=== PATIENT | female | born 2000 | race Caucasian/White ===

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

== ENCOUNTER 2019-04-03 21:37 | Emergency (ER) | payer OTHER ==
--- OUTSIDE RECORDS SUMMARY | 2019-04-03 21:43 | XMS REPORT | Continuity of Care Document ---
:2000 External Reference #:[id number] Author Name ArellanoAllyn carter Care Team Providers Name Role Phone Jesus Zhang M.D. Primary Care Physician Unavailable Payers Date Identification Numbers Payment Provider Subscriber Effective: Policy Number: [id number] [employer] Christian Byrd 2015 Medicaid PayID: [id number] [address] [address] [place] [address] Family History Date Family Member(s) Observation Comments General No Current Problems Father Psoriasis Father Psoriasis PGF - dec [place] Father Psoriasis paternal aunts and uncles-cardiac issues, specifics unknown Mother maternal aunt-breast cancer Mother maternal aunt-breast cancer maternal great grandmother-dec [place] Siblings 3 unaware of any cardiac issue Social History Type Date Description Comments Sex Unknown Marital Status Single Lives With Mother And Father Occupation Currently Working ETOH Use Denies alcohol use Tobacco Use Start: Unknown Patient has never smoked Recreational Drug Use Denies Drug Use Smoking Status Reviewed: 03/16/19 Patient has never smoked Exercise Type/Frequency Does not exercise Allergies, Adverse Reactions, Alerts Description No Known Drug Allergies Medications Active Medications SIG Qnty Indications Ordering Provider Date No Active Medications Unknown 10/09/2017 History Medications Fluticasone Propionate Unknown - 10/08/2017 Benzoyl Peroxide Unknown - 10/08/2017 Zyrtec Allergy 1 by mouth every day Unknown - 10/08/2017 Multi-Vit/Fluoride 1 milliliters daily Unknown - 10/08/2017 Vital Signs Date Vital Result Comment 03/16/2019 3:43pm Height 63.25 inches 5'3.25" Weight 122.38 lb with shoes Heart Rate 90 /min radial, regular BP Systolic Sitting 118 mmHg LA, reg cuff BP Diastolic Sitting 58 mmHg LA, reg cuff BP Systolic Standing 116 mmHg LA, reg cuff BP Diastolic Standing 60 mmHg LA, reg cuff BMI (Body Mass Index) 21.5 kg/m2 Ejection Fraction 55-60% Echocardiogram 11/10/2017 11/26/2018 1:21pm Height 63.25 inches 5'3.25" Weight 117.00 lb w/shoes Heart Rate 72 /min reg BP Systolic Sitting 115 mmHg Lue reg cuff BP Diastolic Sitting 80 mmHg Lue reg cuff Respiratory Rate 15 /min BMI (Body Mass Index) 20.6 kg/m2 Height Percentile 34 % Weight Percentile 28th Ejection Fraction 55-60% 11/10/17 echo 09/23/2018 2:46pm Height 63.25 inches 5'3.25" Weight 123.00 lb with boots Heart Rate 100 /min BP Systolic 110 mmHg left arm BP Diastolic 60 mmHg left arm BMI (Body Mass Index) 21.6 kg/m2 Height Percentile 34 % Weight Percentile 41st Ejection Fraction 55-60 11/10/17 Echocardiogram 11/18/2017 4:30pm Height 63.25 inches 5'3.25" Weight 115.25 lb with shoes Heart Rate 72 /min BP Systolic Sitting 118 mmHg Ra, reg cuff BP Diastolic Sitting 62 mmHg Ra, reg cuff BMI (Body Mass Index) 20.3 kg/m2 Blood Pressure Percentile 0 % Height Percentile 35 % Weight Percentile 29th Ejection Fraction 55%-60% echo 11/10/17 10/09/2017 2:19pm Height 63.25 inches 5'3.25" Weight 116.00 lb w/shoes Heart Rate 68 /min BP Systolic Sitting 122 mmHg LA reg cuff BP Diastolic Sitting 62 mmHg LA reg cuff BP Systolic Standing 108 mmHg LA reg cuff BP Diastolic Standing 76 mmHg LA reg cuff BMI (Body Mass Index) 20.4 kg/m2 Blood Pressure Percentile 0 % Height Percentile 35 % Weight Percentile 31st 07/05/2015 11:43am Height 63.25 inches 5'3.25" Weight 116.00 lb Heart Rate 82 /min BP Systolic Sitting 101 mmHg BP Diastolic Sitting 66 mmHg Respiratory Rate 16 /min Pain Level 0 BMI (Body Mass Index) 20.4 kg/m2 Blood Pressure Percentile 0 % Height Percentile 38 % Weight Percentile 42nd Results Test Date Facility Test Result H/L Range Note Thyroid Panel 09/24/2018 [facility] Free T4 (Free 0.77 ng/dL N 0.61-1.[address] Thyroxine) [place] [address] [phone] Thyroxine 6.62 ?g/dL N 6.09-12.23 2 TSH (Thyroid Stim Horm) 0.99 mcIU/mL N 0.34-5.60 3 Laboratory test 10/15/2017 [facility] Vitamin D, 1,25 48 pg/mL 18-78 [address] [place] [address] [phone] 1 Copy Result to: JESUS ZHANG ([id number]) 2 Copy Result to: JESUS ZHANG ([id number]) 3 Copy Result to: JESUS ZHANG ([id number]) 4 ADDITIONAL INFORMATION This test was developed and its performance characteristics determined by [facility] in a manner consistent with CLIA requirements. This test has not been cleared or approved by the U.S. Food and Drug Administration. Test Performed by: [facility] [address] [place] [address] Procedures Date Code Description Status 03/16/2019 94852 EKG Tracing & Interpretation Completed 12/27/2018 26064 Event Monitor/Phys Review/Interp. Completed 11/23/2018 39581 Treadmill Interp/Report Only Completed 11/23/2018 71913 Stress Test Supervsn W/Out I/R Completed 09/23/2018 02266 EKG Tracing & Interpretation Completed 11/10/2017 92899 ECHO Transthoracic, Real-Time 2D With Doppler And Color Completed Flow 11/10/2017 72559 ECHO Transthoracic, Real-Time 2D With Doppler And Color Completed Flow 10/23/2017 84896 Holter Monitor Review (24 hr)dr review & interp only Completed 10/20/2017 25327 ECG Monitor/Recording W/Visual Superimposition Scanning Completed 10/09/2017 40657 EKG Tracing & Interpretation Completed Encounters Type Date Location Provider Dx Diagnosis Office Visit 11/26/2018 [facility] Bre Mitchell I47.1 Supraventricular 1:30p Of Mesh Cutter N.P. tachycardia R00.2 Palpitations R55 Syncope and collapse Office Visit 09/23/2018 [facility] Bre Villagran I47.1 Supraventricular 3:00p Cardiology Stephen, N.P. tachycardia R00.2 Palpitations R07.9 Chest pain, unspecified Office Visit 11/18/2017 4:20p [facility] Cedrick Villagran R55 Syncope and Bryant Mahmood collapse I47.1 Supraventricular tachycardia Office Visit 10/09/2017 [facility] Cedrick Villagran R55 Syncope and collapse 2:40p Cardiology Bryant Mahmood Office Visit 07/05/2015 [facility] [id number] Sprain of 10:30a [facility] interphalangeal C.M.A. joint of left middle finger, init Plan of Treatment 03/16/2019 - Cedrick Mahmood M.D.I47.1 Supraventricular tachycardiaFollow up:8 months ovR00.2 Palpitations
--- OUTSIDE RECORDS SUMMARY | 2019-04-03 21:43 | XMS REPORT | Continuity of Care Document ---
:1999 External Reference #:[id number] Author Name Gianluca LangP.N.PLee Ann Address [address] [facility] [address] [place] [address] Care Team Providers Name Role Phone Jesus Zhang M.D. Primary Care Physician Unavailable Payers Date Identification Numbers Payment Provider Subscriber Effective: 2015 Policy Number: [id number] Oscar (Managed MD) Ophelia Romanzquez PayID: [id number] [address] [address] [place] [address] Problems Description No Active Problems Family History Date Family Member(s) Observation Comments General Father with psoriasisMaternal aunt with breast cancer.Mother with pain in breast Social History Type Date Description Comments Sex Unknown Lives With Mother Lives With Older Brother Lives With Older Sister Lives With Younger Sister Lives With Cousin Work Status Currently Working Working at a [employer]. Tobacco Use Start: Unknown Patient has never smoked Smoking Status Reviewed: 01/04/19 Patient has never smoked Allergies, Adverse Reactions, Alerts Description No Known Drug Allergies Medications Active Medications SIG Qnty Indications Ordering Provider Date Azithromycin take two tablets 6tabs J01.90 Reina Jackson, 03/21/2019 250mg (500 mg), by C.P.N.P. Tablets mouth, day today, and then take 1 tablet (250 mg) days 2 through 5. Melatonin take 1 tablet by 30tabs G47.9 Jesus Zhang, 01/04/2019 3mg Tablets mouth at 8 at M.D. night every night History Medications Amoxicillin 2 tablet twice 40tabs J02.0 Diana Jaramilloppel, 01/11/2018 - 500mg daily for 10 days C.P.N.P. 01/21/2018 Tablets Nexplanon as directed Jesus 10/01/2017 - 68mg Leatha, 03/18/2019 Implant M.D. No Active Unknown 08/02/2015 - Medications 10/01/2017 Fluticasone use one spray 1units 995.3 Jesus 07/19/2014 - Propionate each nostril Leatha, 08/02/2015 50mcg/Act every day M.D. Suspension Benzoyl Peroxide apply over face 60gm 706.1 Jesus 07/19/2014 - 5% every at night Leatha, 08/02/2015 Gel M.D. Fluticasone 2 sprays in each 50units 995.3 Jesus 05/07/2012 - Propionate Nasal nostril once Leatha, 07/19/2014 daily M.D. 50mcg/Act Suspension Zyrtec Allergy 1 tab po qhs 30tabs 995.3 Jesus 11/26/2011 - 10mg Leatha, 08/02/2015 Tablets M.D. Nasonex 1 spray in each 1units 995.3 Jesus 11/19/2010 - 50mcg/Act nostril qday Leatha, 05/07/2012 Suspension M.D. Zyrtec 1/2 tab po qd 30tabs 995.3 Jesus 11/19/2010 - 10mg Tablets for 1 wk, then 1 Leatha, 11/26/2011 tab po qday M.D. Multi-Vitamin/Fluori 1 po qd 90units V20.2 Jesus 11/19/2010 - de Leatha, 08/02/2015 0.5mg Chewtabs M.D. Zyrtec 1 teaspoon po 30days 995.3 Jesus 11/09/2009 - 1mg/ml Syrup daily Leatha, 11/19/2010 M.D. Nasonex 1 spray in each 1units 995.3 Jesus 11/09/2009 - 50mcg/Act nostril qday Leatha, 11/18/2009 Suspension M.D. Claritin 5 MG 1 PO qd 30units 995.3 Jesus 04/26/2007 - Chewable Leatha, 11/09/2009 MAlisha Montgomery-Tabs 1 po qd 90units V20.2 Jesus 04/26/2007 - Leatha, 11/19/2010 1.1mg Chewtabs MAlisha Immunizations CPT Code Status Date Vaccine Lot # [id number] Given 01/04/2019 Meningococcal B Recombinant Protein And Outer [id number] Membrane [Bexsero] 21576 Given 10/01/2017 Flu Inj Quadrivalent .5ml Preserve Free [id number] 46539 Given 06/02/2016 Flu Inj Quadrivalent .5ml Preserve Free [id number] 16096 Given 08/02/2015 Meningococcal A,C,Y,W135 (Menactra) [id number] Preservative Free 45797 Given 08/02/2015 Flu Inj Quadrivalent .5ml Preserve Free [id number] 44576 Given 07/19/2014 Flu Mist Quadrivalent [id number] 34061 Given 06/29/2013 Flu Mist Quadrivalent [id number] 45580 Given 05/26/2013 HPV 4 Gardasil 4 [id number] 20496 Given 12/05/2011 HPV 4 Gardasil 4 [id number] 35181 Given 11/26/2011 Flu Vacc Nasal Mist Trivalent (FluMist) [id number] 06991 Given 11/19/2010 Hepatitis A Vaccine Pediatric/Adolescent 2 [id number] Dose Schedule 35104 Given 11/19/2010 HPV 4 Gardasil 4 [id number] 75027 Given 11/19/2010 Meningococcal A,C,Y,W135 (Menactra) [id number] Preservative Free 31248 Given 09/26/2010 Flu Vacc Nasal Mist Trivalent (FluMist) [id number] 94647 Given 11/09/2009 Varicella (Chicken Pox) Immunization [id number] 59902 Given 11/09/2009 TdaP Immunization Age 7+ [id number] 58416 Given 11/09/2009 Flu Vacc Preserv Free Trivalent 3+yrs [id number] 34512 Given 10/16/2009 Flu H1N1/Pandemic Nasal Mist [id number] 49157 Given 10/16/2009 Vaccine Admin H1N1 Only Im or Nasal 25025 Given 04/26/2007 Hepatitis A Vaccine Pediatric/Adolescent 2 [id number] Dose Schedule 73403 Given 05/05/2003 Poliomyelitis Immunization 81124 Given 05/05/2003 MMR Virus Immunization 92567 Given 05/05/2003 DTaP Immunization under age 7 29400 Given 07/27/2000 Varicella (Chicken Pox) Immunization 80825 Given 03/31/2000 MMR Virus Immunization Vital Signs Date Vital Result Comment 03/21/2019 11:49am Weight 121.25 lb Weight 54.999 kg Body Temperature 98.1 F 03/18/2019 8:51am Height 64.25 inches 5'4.25" Weight 121.00 lb Weight 54.886 kg BMI (Body Mass Index) 20.6 kg/m2 01/04/2019 2:07pm Height 64.25 inches 5'4.25" Height Percentile 49 % Weight 119.81 lb Weight 54.347 kg Weight Percentile 34th Heart Rate 96 /min Respiratory Rate 12 /min BP Systolic 107 mmHg BP Diastolic 65 mmHg BMI (Body Mass Index) 20.4 kg/m2 Body Mass Index Percentile 33 % Right ear audiology results 20 db Left ear audiology results 20 db Left Visual Acuity Distance 20/40 Corrective Lenses Right Visual Acuity Distance 20/30 Corrective Lenses 01/11/2018 3:45pm Weight 114.38 lb Weight 51.880 kg Weight Percentile 26th Body Temperature 99.0 F 12/03/2017 2:02pm Height 64.75 inches 5'4.75" Height Percentile 58 % Weight 113.00 lb Weight 51.257 kg Weight Percentile 24th Heart Rate 89 /min Respiratory Rate 12 /min BP Systolic 111 mmHg BP Diastolic 57 mmHg Blood Pressure Percentile 49 % BMI (Body Mass Index) 18.9 kg/m2 Body Mass Index Percentile 16 % Right ear audiology results 20 db Left ear audiology results 20 db Left Visual Acuity Distance 20/40 Corrective Lenses-1 Right Visual Acuity Distance 20/40 Corrective Lenses-1 10/01/2017 9:11am Height 64.5 inches 5'4.50" Height Percentile 54 % Weight 113.00 lb Weight 51.257 kg Weight Percentile 24th Body Temperature 98.4 F Heart Rate 86 /min BP Systolic 120 mmHg BP Diastolic 67 mmHg Blood Pressure Percentile 80 % BMI (Body Mass Index) 19.1 kg/m2 Body Mass Index Percentile 19 % BP Systolic Sitting 102 mmHg pulse 67 BP Diastolic Sitting 57 mmHg pulse 67 BP Systolic Standing 108 mmHg pulse 84 BP Diastolic Standing 68 mmHg pulse 84 BP Systolic Lying Down 107 mmHg pulse 58 BP Diastolic Lying Down 58 mmHg pulse 58 08/19/2017 3:05pm Weight 114.50 lb Weight 51.937 kg Weight Percentile 28th Body Temperature 99.4 F Heart Rate 99 /min O2 % BldC Oximetry 96 % 07/01/2016 4:07pm Weight 114.00 lb Weight 51.710 kg Weight Percentile 32nd Body Temperature 99.5 F Heart Rate 75 /min BP Systolic 102 mmHg BP Diastolic 62 mmHg Blood Pressure Percentile 0 % 06/02/2016 4:24pm Weight 113.00 lb Weight 51.257 kg Weight Percentile 30th Body Temperature 99.1 F 08/02/2015 1:54pm Height 64.5 inches 5'4.50" Height Percentile 57 % Weight 112.50 lb Weight 51.030 kg Weight Percentile 34th Heart Rate 74 /min BP Systolic 111 mmHg BP Diastolic 68 mmHg Blood Pressure Percentile 46 % BMI (Body Mass Index) 19.0 kg/m2 Body Mass Index Percentile 28 % 07/19/2014 10:43am Height 64 inches 5'4" Height Percentile 53 % Weight 112.50 lb Weight 51.030 kg Weight Percentile 42nd Heart Rate 77 /min Respiratory Rate 12 /min BP Systolic 116 mmHg BP Diastolic 66 mmHg Blood Pressure Percentile 68 % BMI (Body Mass Index) 19.3 kg/m2 Body Mass Index Percentile 39 % 05/26/2013 2:58pm Height 62.75 inches 5'2.75" Height Percentile 42 % Weight 101.00 lb Weight 45.814 kg Weight Percentile 31st Heart Rate 78 /min Respiratory Rate 16 /min BP Systolic 110 mmHg BP Diastolic 57 mmHg Blood Pressure Percentile 53 % BMI (Body Mass Index) 18.0 kg/m2 Body Mass Index Percentile 29 % 11/26/2011 2:14pm Height 59 inches 4'11" Height Percentile 21 % Weight 80.50 lb Weight 36.515 kg Weight Percentile 14th Heart Rate 88 /min Respiratory Rate 16 /min BP Systolic 102 mmHg BP Diastolic 52 mmHg Blood Pressure Percentile 36 % BMI (Body Mass Index) 16.3 kg/m2 Body Mass Index Percentile 16 % 12/05/2010 12:51pm Weight 72.00 lb Weight 32.659 kg Weight Percentile 13th Body Temperature 99.2 F Blood Pressure Percentile 0 % 11/19/2010 8:25am Height 57.25 inches 4'9.25" Height Percentile 33 % Weight 69.00 lb Weight 31.298 kg Weight Percentile 9th Heart Rate 88 /min BP Systolic 102 mmHg BP Diastolic 66 mmHg Blood Pressure Percentile 41 % BMI (Body Mass Index) 14.8 kg/m2 Body Mass Index Percentile 6 % 11/09/2009 11:22am Height 55 inches 4'7" Height Percentile 39 % Weight 65.25 lb Weight 29.597 kg Weight Percentile 16th BP Systolic 108 mmHg BP Diastolic 60 mmHg Blood Pressure Percentile 69 % BMI (Body Mass Index) 15.2 kg/m2 Body Mass Index Percentile 15 % 06/16/2007 9:23am Weight 53.00 lb Weight 24.041 kg Weight Percentile 30th Body Temperature 97.1 F 04/26/2007 2:17pm Height 49 inches 4'1" Height Percentile 29 % Weight 50.00 lb Weight 22.680 kg Weight Percentile 23rd Heart Rate 100 /min BMI (Body Mass Index) 14.6 kg/m2 Body Mass Index Percentile 25 % BP Systolic Sitting 114 mmHg BP Diastolic Sitting 60 mmHg BP Systolic Lying Down 114 mmHg BP Diastolic Lying Down 58 mmHg Results Test Date Facility Test Result H/L Range Note Laboratory test 03/18/2019 In House Lab .Strep A, Rapid negative finding (298)- - GC/Chlamydia 01/04/2019 [facility] Chlamydia Negative Negative 1 Amplified Rna [address] [place] [address] [phone] Neisseria gonorrhoeae (GC) Rna Negative Negative Laboratory test 09/24/2018 [facility] Thyroxine 6.62 ?g/dL N 6.09-12.23 [address] [place] [address] [phone] TSH (Thyroid Stim Horm) 0.99 mcIU/mL N 0.34-5.60 3 Free T4 (Free Thyroxine) 0.77 ng/dL N 0.61-1.12 4 CBC Auto Diff 09/08/2018 [facility] White Blood 9.9 10^3/uL N 3.5-10.[address] [place] [address] [phone] Red Blood Count 4.78 10^6/uL N 4.00-5.40 Hemoglobin 13.5 g/dL N 12.0-16.0 Hematocrit 40 % N 35-47 Mean Corpuscular Volume 85 fL N 80-97 Mean Corpuscular Hemoglobin 28 pg N 27-31 Mean Corpuscular HGB Conc 34 g/dL N 31-36 Red Cell Distribution Width 14 % N 10.5-15 Platelet Count 302 10^3/uL N 150-450 Mean Platelet Volume 7.5 fL N 7.4-10.4 Abs Neutrophils 5.6 10^3/uL N 1.5-7.7 Abs Lymphocytes 3.2 10^3/uL N 1.0-4.8 Abs Monocytes 0.6 10^3/uL N 0-0.8 Abs Eosinophils 0.4 10^3/uL N 0-0.6 Abs Basophils 0.1 10^3/uL N 0-0.2 Abs Nucleated RBC 0 10^3/uL Granulocyte % 56.2 % Lymphocyte % 32.8 % Monocyte % 6.5 % Eosinophil % 3.8 % Basophil % 0.7 % Nucleated Red Blood Cells % 0.1 Basic Metabolic Panel 09/08/2018 [facility] Sodium 138 mmol/L N 135-[address] [place] [address] [phone] Potassium 4.3 mmol/L N 3.5-5.0 Chloride 106 mmol/L N 101-111 Co2 Carbon Dioxide 25 mmol/L N 22-32 Anion Gap 7 mmol/L N 2-11 Glucose 92 mg/dL N 70-100 Blood Urea Nitrogen 9 mg/dL N 6-24 Creatinine 0.65 mg/dL N 0.51-0.95 BUN/Creatinine Ratio 13.8 N 8-20 Calcium 10.1 mg/dL N 8.6-10.3 Egfr Non- 117.4 >60 Egfr 142.1 >60 5 Laboratory test 09/08/2018 [facility] C Reactive < 1.00 mg/L N <8.[address] [place] [address] [phone] Troponin-I (TnI) 0.00 ng/mL <0.04 6 D Dimer Quantitative < 200 ng/mL N Less Than 230 7 Laboratory test 01/12/2018 In House Lab .Strep A, Rapid <pending> finding (210)- - GC/Chlamydia 12/03/2017 [facility] Chlamydia Negative Negative 8 Amplified Rna [address] [facility] [place] [address] [phone] Neisseria gonorrhoeae (GC) Rna Negative Negative Laboratory test 12/03/2017 In House Lab .Hemoglobin in house 14.1 finding (980)- - Laboratory test 10/15/2017 [facility] Vitamin D, 1,25 48 pg/mL 18-78 9 finding [address] [facility] [place] [place] [address] [phone] Urinalysis Profile 09/18/2017 [facility] Urine Color Yellow [address] [place] [address] [phone] Urine Appearance Cloudy Urine Specific [place] 1.011 N 1.010-1.030 Urine pH 5.0 N 5-9 Urine Urobilinogen Negative Negative Urine Ketones Negative Negative Urine Protein Negative Negative Urine Leukocytes Negative Negative Urine Blood Negative Negative Urine Nitrite Negative Negative Urine Bilirubin Negative Negative Urine Glucose Negative Negative Comp Metabolic Panel 09/18/2017 [facility] Sodium 132 mmol/L Low 133-145 [address] [place] [address] [phone] Potassium 3.4 mmol/L Low 3.5-5.0 Chloride 104 mmol/L N 101-111 Co2 Carbon Dioxide 23 mmol/L N 22-32 Anion Gap 5 mmol/L N 2-11 Glucose 124 mg/dL High 70-100 Blood Urea Nitrogen 11 mg/dL N 6-24 Creatinine 0.65 mg/dL N 0.51-0.95 BUN/Creatinine Ratio 16.9 N 8-20 Calcium 9.4 mg/dL N 8.6-10.3 Total Protein 7.3 g/dL N 6.4-8.9 Albumin 4.2 g/dL N 3.2-5.2 Globulin 3.1 g/dL N 2-4 Albumin/Globulin Ratio 1.4 N 1-3 Total Bilirubin 0.40 mg/dL N 0.2-1.0 Alkaline Phosphatase 74 U/L N 34-104 Alt 19 U/L N 7-52 Ast 13 U/L N 13-39 Egfr Non- 118.7 >60 Egfr 152.7 >60 10 Laboratory test 09/18/2017 [facility] Magnesium 2.0 mg/dL N 1.9-2.[address] [place] [address] [phone] HCG < 0.60 mIU/mL 11 TSH (Thyroid Stim Horm) 2.46 mcIU/mL N 0.34-5.60 Lactic Acid 1.3 mmol/L N 0.5-2.0 12 CBC Auto 09/18/2017 [facility] White Blood 12.0 10^3/uL High 3.5-10.[address] [place] [address] [phone] Red Blood Count 4.77 10^6/uL N 4.0-5.4 Hemoglobin 13.4 g/dL N 12.0-16.0 Hematocrit 41 % N 35-47 Mean Corpuscular Volume 85 fL N 80-97 Mean Corpuscular Hemoglobin 28 pg N 27-31 Mean Corpuscular HGB Conc 33 g/dL N 31-36 Red Cell Distribution Width 14 % N 10.5-15 Platelet Count 269 10^3/uL N 150-450 Mean Platelet Volume 7 um3 Low 7.4-10.4 Abs Neutrophils 8.6 10^3/uL High 1.5-7.7 Abs Lymphocytes 2.3 10^3/uL N 1.0-4.8 Abs Monocytes 0.7 10^3/uL N 0-0.8 Abs Eosinophils 0.4 10^3/uL N 0-0.6 Abs Basophils 0.1 10^3/uL N 0-0.2 Abs Nucleated RBC 0 10^3/uL Granulocyte % 71.5 % N 38-83 Lymphocyte % 19.4 % Low 25-47 Monocyte % 5.7 % N 1-9 Eosinophil % 2.9 % N 0-6 Basophil % 0.5 % N 0-2 Nucleated Red Blood Cells % 0 Laboratory test 08/19/2017 In House Lab .Strep A, Rapid negative finding (761)- - Laboratory test 12/09/2016 [facility] C Reactive < 1.00 mg/L N < 5.00 [address] [place] [address] [phone] HCG 751.03 mIU/mL N 14 Comp Metabolic Panel 12/09/2016 [facility] Sodium 138 mmol/L N 133-[address] [place] [address] [phone] Potassium 4.3 mmol/L N 3.5-5.0 Chloride 106 mmol/L N 101-111 Co2 Carbon Dioxide 25 mmol/L N 22-32 Anion Gap 7 mmol/L N 2-11 Glucose 91 mg/dL N 70-100 Blood Urea Nitrogen 10 mg/dL N 6-24 Creatinine 0.63 mg/dL N 0.51-0.95 BUN/Creatinine Ratio 15.9 N 8-20 Calcium 9.9 mg/dL N 8.6-10.3 Total Protein 7.6 g/dL N 6.4-8.9 Albumin 4.6 g/dL N 3.2-5.2 Globulin 3.0 g/dL N 2-4 Albumin/Globulin Ratio 1.5 N 1-3 Total Bilirubin 0.40 mg/dL N 0.2-1.0 Alkaline Phosphatase 66 U/L N 34-104 Alt 12 U/L N 7-52 Ast 11 U/L Low 13-39 CBC No Diff 12/09/2016 [facility] White Blood 9.5 10^3/uL N 3.5-10.[address] [place] [address] [phone] Red Blood Count 4.40 10^6/uL N 4.0-5.4 Hemoglobin 12.7 g/dL N 12.0-16.0 Hematocrit 38 % N 35-47 Mean Corpuscular Volume 86 fL N 80-97 Mean Corpuscular Hemoglobin 29 pg N 27-31 Mean Corpuscular HGB Conc 33 g/dL N 31-36 Red Cell Distribution Width 14 % N 10.5-15 Platelet Count (SEE NOTE) 10^3/uL N 150-450 15 Mean Platelet Volume TNP um3 N 7.4-10.4 Urinalysis Profile 12/09/2016 [facility] Urine Color Straw N [address] [place] [address] [phone] Urine Appearance Clear N Urine Specific [place] 1.005 Low 1.010-1.030 Urine pH 6.0 N 5-9 Urine Urobilinogen Negative N Negative Urine Ketones Negative N Negative Urine Protein Negative N Negative Urine Leukocytes Negative N Negative Urine Blood 3+ Abnormal Negative Urine Nitrite Negative N Negative Urine Bilirubin Negative N Negative Urine Glucose Negative N Negative Urine White Blood Cell Trace(0-5/hpf) N Absent Urine Red Blood Cell 3+(>10/hpf) Abnormal Absent Urine Bacteria Absent N Absent Urine Squamous Epithelial Cell Present Abnormal Absent GC/Chlamydia 12/06/2016 [facility] Chlamydia Negative N Negative Amplified Rna [address] [place] [address] [phone] Neisseria gonorrhoeae (GC) Rna Negative N Negative Laboratory test 12/06/2016 [facility] Lactic Acid 2.2 mmol/L High 0.5-2.0 [address] [place] [address] [phone] Laboratory test 08/02/2015 In [facility] .Hemoglobin in 13.4 finding (607)- - house Laboratory test 07/19/2014 Hemoglobin 13.2 finding Laboratory test 05/26/2013 In [facility] .Hemoglobin in 14.1 finding (607)- - house Laboratory test 11/26/2011 In [facility] Hemoglobin 13.3 finding (607)- - Laboratory test 11/26/2011 [facility] .Urine dip - neg finding (607)- - see nurse note Laboratory test 11/19/2010 [facility] Hemoglobin 13.4 finding (607)- - Laboratory test 11/19/2010 [facility] .Urine dip - neg finding (607)- - see nurse note Laboratory test 11/09/2009 [facility] [employer] (SEE NOTE) [address] [place] [address] [phone] [place] Panel (SEE NOTE) 18 Laboratory test finding 11/09/2009 [facility] Hemoglobin 11.9 (607)- - Laboratory test finding 11/09/2009 [facility] .Urine dip - see nurse neg (607)- - note Laboratory test finding 04/26/2007 [facility] Hemoglobin 12.4 (607)- - 1 [id number] 2 Copy Result to: JESUS ZHANG ([id number]) 3 Copy Result to: JESUS ZHANG ([id number]) 4 Copy Result to: JESUS ZHANG ([id number]) 5 Because ethnic data is not always readily available, this report includes an eGFR for both -Americans and non- Americans. The National Kidney Disease Education Program (NKDEP) does not endorse the use of the MDRD equation for patients that are not between the ages of 18 and 70, are , have extremes of body size, muscle mass, or nutritional status, or are non- or non-. According to the National Kidney Foundation, irrespective of diagnosis, the stage of the disease is based on the level of kidney function: Stage Description GFR(mL/min/1.73 m(2)) 1 Kidney damage with normal or decreased GFR 90 2 Kidney damage with mild decrease in GFR 60-89 3 Moderate decrease in GFR 30-59 4 Severe decrease in GFR 15-29 5 Kidney failure <15 (or dialysis) 6 Troponin-I testing on Plasma Separator Tubes (PST) has a known false positive rate of 0.20-0.40%. All positive troponins reflex immediate secondary confirmatory testing. 7 Please note: The following may produce a false positive D Dimer test: - Rheumatoid factor greater than 60 IU/ml - Plasma hemoglobin greater than 0.05 gm/dl - Bilirubin greater than 50 mg/dl - Lipids greater than 1000 mg/dl - FDP greater than 20 ug/ml 8 [id number] ADDITIONAL INFORMATION This test was developed and its performance characteristics determined by [facility] in a manner consistent with CLIA requirements. This test has not been cleared or approved by the U.S. Food and Drug Administration. Test Performed by: [facility] [address] [place] [address] 10 Because ethnic data is not always readily available, this report includes an eGFR for both -Americans and non- Americans. The National Kidney Disease Education Program (NKDEP) does not endorse the use of the MDRD equation for patients that are not between the ages of 18 and 70, are , have extremes of body size, muscle mass, or nutritional status, or are non- or non-. According to the National Kidney Foundation, irrespective of diagnosis, the stage of the disease is based on the level of kidney function: Stage Description GFR(mL/min/1.73 m(2)) 1 Kidney damage with normal or decreased GFR 90 2 Kidney damage with mild decrease in GFR 60-89 3 Moderate decrease in GFR 30-59 4 Severe decrease in GFR 15-29 5 Kidney failure <15 (or dialysis) 11 <5.0 Negative 5.0 - 25.0 Indeterminate (Repeat testing recommended after 72 hours) >25.0 Positive Perimenopausal women can display HCG levels of up to 20 mIU/mL 12 [facility] Severe Sepsis and Septic Shock Management Bundle Measure requires all lactic acids initially measuring >2.0 mmol/L be repeated. 13 Acute inflammation: >10.00 14 <5.0 Negative 5.0 - 25.0 Indeterminate (Repeat testing recommended after 72 hours) >25.0 Positive Perimenopausal women can display HCG levels of up to 20 mIU/mL 15 Platelets clumped. Unable to perform accurate count. Verbal to MOLLY/ED by [id number] at 1616 on 12/09/16. Patient discharged, no recollect needed. 16 Critical Result LACT:2.2 Called to [id number] at: 09:33:04 by:[id number] Read back by:[facility] Severe Sepsis and Septic Shock Management Bundle Measure requires all lactic acids initially measuring >2.0 mmol/L be repeated. 17 TEST RESULT RETURNED FROM REFERENCE LABORATORY AND HARDCOPY SENT TO PHYSICIAN(S) OFFICE. 18 TEST RESULT RETURNED FROM REFERENCE LABORATORY AND HARDCOPY SENT TO PHYSICIAN(S) OFFICE. Encounters Type Date Location Provider Dx Diagnosis Office Visit 03/21/2019 [facility] Office Reina Jackson, J01.90 Acute sinusitis, 11:45a C.P.N.P. unspecified Office Visit 03/18/2019 [facility] Office Suzan Lang02.9 Acute pharyngitis, 9:00a C.P.N.P. unspecified Office Visit 01/04/2019 Main Office Jesus Zhang Z00.01 Encounter for general 2:00p M.D. adult medical exam w abnormal findings Z13.89 Encounter for screening for other disorder G47.9 Sleep disorder, unspecified Office Visit 01/11/2018 4:00p Main Office Diana Stanton J02.0 Streptococcal C.P.N.P. pharyngitis Office Visit 12/03/2017 2:00p Main Office Jesus Z00.01 Encounter for Leatha general adult M.DLee Ann medical exam w abnormal findings Z13.89 Encounter for screening for other disorder Office Visit 10/01/2017 9:00a Main Office Jesus Zhang, R55 Syncope and M.D. collapse M94.0 Chondrocostal junction syndrome [Tietze] Office Visit 08/19/2017 3:15p Main Office Anita Ferro, J06.9 Acute upper D.O. respiratory infection, unspecified Office Visit 07/01/2016 4:00p [facility] Davis Garcia S06.0x0A Concussion without Lambert, III, loss of M.D. consciousness, initial encounter Office Visit 06/02/2016 4:15p [facility] Jesus S63.501A Unspecified sprain Leatha, of right wrist, M.D. initial encounter Office Visit 08/02/2015 2:00p Main Office Jesus Zhang M.D. Office Visit 07/19/2014 11:00a Main Office Jesus V20.2 Routine Or Leatha, Child Health Check M.D. 368.00 Amblyopia Unspec 995.3 Allergy Unspec 706.1 Acne Other Office Visit 05/26/2013 3:30p Main Office Jesus Zhang, V20.2 Routine Infant M.D. Or Child Health Check 368.00 Amblyopia Unspec 995.3 Allergy Unspec Office Visit 11/26/2011 3:00p Main Office Jesus Zhang V20.2 Routine M.D. Or Child Health Check 368.00 Amblyopia Unspec 995.3 Allergy Unspec Office Visit 12/05/2010 1:00p Main Office Jesus Zhang, 995.3 Allergy Unspec M.D. Office Visit 11/19/2010 8:45a Main Office Jesus Zhang V20.2 Routine Infant M.D. Or Child Health Check 995.3 Allergy Unspec Office Visit 11/09/2009 11:00a Main Office Jesus Zhang V20.2 Routine M.D. Or Child Health Check 368.00 Amblyopia Unspec 995.3 Allergy Unspec Office Visit 04/26/2007 2:15p Main Office Jesus Leatha, V20.2 Routine Infant M.D. Or Child Health Check 692.89 Dermatitis Due To Spec Agents Other 995.3 Allergy Unspec Office Visit 06/26/2005 9:15a Main Office Antonia Lynn, 372.30 Conjunctivitis Unspec [facility] Office Visit 05/29/2005 1:45p Main Office Arjun Abraham, 079.99 Viral Infection M.D. Unspec Office Visit 06/06/2004 3:00p Main Office Jeuss V20.2 Routine Infant Or Leatha, Child Health Check M.D. Office Visit 05/05/2003 3:30p Main Office Jesus V20.2 Routine Or Leatha, Child Health Check M.D. Plan of Treatment 03/21/2019 - Reina Jackson, GianlucaP.N.P.J01.90 Acute sinusitis, unspecifiedNew Medication:Azithromycin 250 mg - take two tablets (500 mg), by mouth, day today , and then take 1 tablet (250 mg) days 2 through 5.Comments:Discussed sinusitis , will treat with abx, take with food, increase probiotic intake. Should see improvements in 2-3 days. Provide symptomatic care, promote nasal drainage, humidified air, fluids and rest. Monitor and call as needed.Follow up:as needed for new or worsening symptoms
--- OUTSIDE RECORDS SUMMARY | 2019-04-03 21:43 | XMS REPORT | Continuity of Care Document ---
:2000 External Reference #:[id number] Author Name Reina Jackson C.P.NLee AnnP. Address [address] [place] [address] Care Team Providers Name Role Phone Jesus Zhang M.D. Primary Care Physician Unavailable Payers Date Identification Numbers Payment Provider Subscriber Effective: 2015 Policy Number: [id number] Oscar (Managed ) Ophelia Romanzquez PayID: [id number] [id number] [place] [address] Problems Description No Active Problems Family History Date Family Member(s) Observation Comments General Father with psoriasisMaternal aunt with breast cancer.Mother with pain in breast Social History Type Date Description Comments Sex Unknown Lives With Mother Lives With Older Brother Lives With Older Sister Lives With Younger Sister Lives With Cousin Work Status Currently Working Working at a Det[employer]. Tobacco Use Start: Unknown Patient has never smoked Smoking Status Reviewed: 01/04/19 Patient has never smoked Allergies, Adverse Reactions, Alerts Description No Known Drug Allergies Medications Active Medications SIG Qnty Indications Ordering Provider Date Melatonin take 1 tablet by 30tabs G47.9 Jesus Zhang, 01/04/2019 3mg Tablets mouth at 8 at M.D. night every night History Medications Amoxicillin 2 tablet twice 40tabs J02.0 Diana Stanton, 01/11/2018 - 500mg daily for 10 days [...] 995.3 Jesus 04/26/2007 - Chewable Leatha, 11/09/2009 Bryant Montgomery-Tabs 1 po qd 90units V20.2 Jesus 04/26/2007 - Elatha, 11/19/2010 1.1mg Mery Hurtado Immunizations CPT Code Status Date Vaccine Lot # [id number] Given 01/04/2019 Meningococcal B Recombinant Protein And Outer [id number] Membrane [Bexsero] 35309 Given 10/01/2017 Flu Inj Quadrivalent .5ml Preserve Free [id number] 14173 Given 06/02/2016 Flu Inj Quadrivalent .5ml Preserve Free [id number] 67144 Given 08/02/2015 Meningococcal A,C,Y,W135 (Menactra) [id number] Preservative Free 42740 Given 08/02/2015 Flu Inj Quadrivalent .5ml Preserve Free [id number] 49566 Given 07/19/2014 Flu Mist Quadrivalent [id number] 27389 Given 06/29/2013 Flu Mist Quadrivalent [id number] 31696 Given 05/26/2013 HPV 4 Gardasil 4 [id number] 99849 Given 12/05/2011 HPV 4 Gardasil 4 [id number] 32634 Given 11/26/2011 Flu Vacc Nasal Mist Trivalent (FluMist) [id number] 44163 Given 11/19/2010 Hepatitis A Vaccine Pediatric/Adolescent 2 [id number] Dose Schedule 66502 Given 11/19/2010 HPV 4 Gardasil 4 [id number] 24383 Given 11/19/2010 Meningococcal A,C,Y,W135 (Menactra) [id number] Preservative Free 93667 Given 09/26/2010 Flu Vacc Nasal Mist Trivalent (FluMist) [id number] 54318 Given 11/09/2009 Varicella (Chicken Pox) Immunization [id number] 40507 Given 11/09/2009 TdaP Immunization Age 7+ [id number] 50978 Given 11/09/2009 Flu Vacc Preserv Free Trivalent 3+yrs [id number] 03582 Given 10/16/2009 Flu H1N1/Pandemic Nasal Mist [id number] 37619 Given 10/16/2009 Vaccine Admin [id number] Only Im or Nasal 30086 Given 04/26/2007 Hepatitis A Vaccine Pediatric/Adolescent 2 [id number] Dose Schedule 64717 Given 05/05/2003 Poliomyelitis Immunization 72238 Given 05/05/2003 MMR Virus Immunization 56368 Given 05/05/2003 DTaP Immunization under age 7 15006 Given 07/27/2000 Varicella (Chicken Pox) Immunization 81659 Given 03/31/2000 MMR Virus Immunization Vital Signs Date Vital Result Comment 03/18/2019 8:51am Height 64.25 inches 5'4.25" Weight [...] House Lab .Strep A, Rapid negative finding (717)- - GC/Chlamydia 01/04/2019 [facility] Chlamydia Negative Negative 1 Amplified Rna [address] [place] [address] [phone] Neisseria gonorrhoeae (GC) Rna Negative Negative Laboratory test 09/24/2018 [facility] Thyroxine 6.62 ?g/dL N 6.09-12.23 [address] [place] [address] [phone] TSH (Thyroid Stim Horm) 0.99 mcIU/mL N 0.34-5.60 3 Free T4 (Free Thyroxine) 0.77 ng/dL N 0.61-1.12 4 CBC Auto Diff 09/08/2018 [facility] White Blood 9.9 10^3/uL N 3.5-10.[address] [place] [address] [phone] Red Blood Count 4.78 10^6/uL N 4.00-5.40 [...] Cells % 0.1 Basic Metabolic Panel 09/08/2018 [facility] Sodium 138 mmol/L N 135-145 [address] [place] [address] [phone] Potassium 4.3 mmol/L N 3.5-5.0 Chloride 106 mmol/L N 101-111 Co2 Carbon Dioxide 25 mmol/L N 22-32 Anion Gap 7 mmol/L N 2-11 Glucose 92 mg/dL N 70-100 Blood Urea Nitrogen 9 mg/dL N 6-24 Creatinine 0.65 mg/dL N 0.51-0.95 BUN/Creatinine Ratio 13.8 N 8-20 Calcium 10.1 mg/dL N 8.6-10.3 Egfr Non- 117.4 >60 Egfr 142.1 >60 5 Laboratory test 09/08/2018 [facility] C Reactive < 1.00 mg/L N <8.[address] [place] [address] [phone] Troponin-I (TnI) 0.00 ng/mL <0.04 6 D Dimer Quantitative < 200 ng/mL N Less Than 230 7 Laboratory test 01/12/2018 In House Lab .Strep A, Rapid <pending> finding (337)- - GC/Chlamydia 12/03/2017 [facility] Chlamydia Negative Negative [address] [place] [address] [phone] Neisseria gonorrhoeae (GC) Rna Negative Negative Laboratory test 12/03/2017 In House Lab .Hemoglobin in house 14.1 finding (110)- - Laboratory test 10/15/2017 [facility] Vitamin D, 1,25 48 pg/mL 18-78 9 finding [address] [place] [address] [phone] Urinalysis Profile 09/18/2017 [facility] Urine Color Yellow [address] [place] [address] [phone] Urine Appearance Cloudy Urine Specific [place] 1.011 N 1.010-1.030 Urine pH 5.0 N 5-9 Urine Urobilinogen Negative Negative Urine Ketones Negative Negative Urine Protein Negative Negative Urine Leukocytes Negative Negative Urine Blood Negative Negative Urine Nitrite Negative Negative Urine Bilirubin Negative Negative Urine Glucose Negative Negative Comp Metabolic Panel 09/18/2017 [facility] Sodium 132 mmol/L Low 133-[address] [place] [address] [phone] Potassium 3.4 mmol/L Low 3.5-5.0 Chloride 104 [...] Egfr 152.7 >60 10 Laboratory test 09/18/2017 [facility] Magnesium 2.0 mg/dL N 1.9-2.7 finding [address] [place] [address] [phone] HCG < 0.60 mIU/mL 11 TSH (Thyroid Stim Horm) 2.46 mcIU/mL N 0.34-5.60 Lactic Acid 1.3 mmol/L N 0.5-2.0 12 CBC Auto 09/18/2017 [facility] White Blood 12.0 10^3/uL High 3.5-10.[address] [place] [address] [phone] Red Blood Count 4.77 10^6/uL N 4.0-5.4 [...] House Lab .Strep A, Rapid negative finding (464)- - Laboratory test 12/09/2016 [facility] C Reactive < 1.00 mg/L N < 5.00 [address] [place] [address] [phone] HCG 751.03 mIU/mL N 14 Comp Metabolic Panel 12/09/2016 [facility] Sodium 138 mmol/L N 133-[address] [place] [address] [phone] Potassium 4.3 mmol/L N 3.5-5.0 Chloride 106 [...] U/L Low 13-39 CBC No Diff 12/09/2016 [facility] White Blood 9.5 10^3/uL N 3.5-10.[address] [place] [address] [phone] Red Blood Count 4.40 10^6/uL N 4.0-5.4 [...] TNP um3 N 7.4-10.4 Urinalysis Profile 12/09/2016 [facility] Urine Color Straw N [address] [place] [address] [phone] Urine Appearance Clear N Urine Specific [place] 1.005 Low 1.010-1.030 Urine pH 6.0 N [...] Epithelial Cell Present Abnormal Absent GC/Chlamydia 12/06/2016 [facility] Chlamydia Negative N Negative Amplified Rna [address] [address] [phone] Neisseria gonorrhoeae (GC) Rna Negative N Negative Laboratory test 12/06/2016 [facility] Lactic Acid 2.2 mmol/L High 0.5-2.0 [address] [place] [address] [phone] Laboratory test 08/02/2015 In House Lab .Hemoglobin in 13.4 finding (607)- - house Laboratory test 07/19/2014 Hemoglobin 13.2 finding Laboratory test 05/26/2013 In House Lab .Hemoglobin in 14.1 finding (607)- - house Laboratory test 11/26/2011 In House Lab Hemoglobin 13.3 finding (607)- - Laboratory test 11/26/2011 In House Lab .Urine dip - neg finding (607)- - see nurse note Laboratory test 11/19/2010 In House Lab Hemoglobin 13.4 finding (607)- - Laboratory test 11/19/2010 [facility] .Urine dip - neg finding (607)- - see nurse note Laboratory test 11/09/2009 [facility] [employer] (SEE NOTE) [address] [place] [address] [phone] [employer] [place] Panel (SEE NOTE) 18 Laboratory test finding 11/09/2009 In House Lab Hemoglobin 11.9 (607)- - Laboratory test finding 11/09/2009 [facility] .Urine dip - see nurse neg (607)- - note Laboratory test finding 04/26/2007 In House Lab Hemoglobin 12.4 (607)- - 1 [id number] 2 Copy Result to: JESUS ZHANG ([id number]) 3 Copy Result to: JESUS ZHANG ([id number]) 4 Copy Result to: JESUS ZHANG ([id number]) 5 Because ethnic data is not always [...] - FDP greater than 20 ug/ml 8 [id number] ADDITIONAL INFORMATION This test was developed and its performance characteristics determined by [facility] in a manner consistent with CLIA requirements. This test has not been cleared or approved by the U.S. Food and Drug Administration. Test Performed by: [facility] [address] [place] [address] 10 Because ethnic data is not always [...] levels of up to 20 mIU/mL 12 [facility] Severe Sepsis and Septic Shock Management Bundle Measure requires all lactic acids initially measuring >2.0 mmol/L be repeated. 13 Acute inflammation: >10.00 14 <5.0 Negative 5.0 - 25.0 Indeterminate (Repeat testing recommended after 72 hours) >25.0 Positive Perimenopausal women can display HCG levels of up to 20 mIU/mL 15 Platelets clumped. Unable to perform accurate count. Verbal to MOLLY/ED by [id number] at 1616 on 12/09/16. Patient discharged, no recollect needed. 16 Critical Result LACT:2.2 Called to [id number] at: 09:33:04 by:[email or web address] Read back by:[facility] Severe Sepsis and Septic Shock Management Bundle Measure requires all lactic acids initially measuring >2.0 mmol/L be repeated. 17 TEST RESULT RETURNED FROM REFERENCE LABORATORY AND HARDCOPY SENT TO PHYSICIAN(S) OFFICE. 18 TEST RESULT RETURNED FROM REFERENCE LABORATORY AND HARDCOPY SENT TO PHYSICIAN(S) OFFICE. Encounters Type Date Location Provider Dx Diagnosis Office Visit 03/18/2019 [facility] Reina Jackson, J02.9 Acute pharyngitis, 9:00a C.P.N.P. unspecified Office Visit 01/04/2019 Main Office Dora Almaraz00.01 Encounter for general 2:00p M.D. adult medical exam w abnormal findings Z13.89 Encounter for screening for other disorder G47.9 Sleep disorder, unspecified Office Visit 01/11/2018 4:00p Main Office Suzan Barton02.0 Streptococcal C.P.N.P. pharyngitis Office Visit 12/03/2017 2:00p Main Office Jesus Z00.01 Encounter for general Leatha adult M.D. medical exam w abnormal findings Z13.89 Encounter for screening for other disorder Office Visit 10/01/2017 9:00a Main Office Jesus Zhang R55 Syncope and M.D. collapse M94.0 Chondrocostal junction syndrome [Tietze] Office Visit 08/19/2017 3:15p Main Office Suzan Bright06.9 Acute upper D.O. respiratory infection, unspecified Office Visit 07/01/2016 4:00p [facility] Davis Garcia S06.0x0A Concussion without Lambert, III, loss of M.D. consciousness, initial encounter Office Visit 06/02/2016 4:15p [facility] Jesus S63.501A Unspecified sprain Leatha, of right wrist, M.D. initial encounter Office Visit 08/02/2015 2:00p Main Office Jesus Zhang M.D. Office Visit 07/19/2014 11:00a Main Office Jesus V20.2 Routine Infant Or Leatha, Child Health Check M.D. 368.00 [...] Office Visit 11/19/2010 8:45a Main Office Jesus Zhang, V20.2 Routine Infant M.D. Or Child Health Check 995.3 Allergy Unspec Office Visit 11/09/2009 11:00a Main Office Jesus Zhang, V20.2 Routine Infant M.D. Or Child Health Check 368.00 Amblyopia Unspec 995.3 Allergy Unspec Office Visit 04/26/2007 2:15p Main Office Jesus Zhang, V20.2 Routine M.D. Or Child Health Check 692.89 Dermatitis Due To Spec Agents Other 995.3 Allergy Unspec Office Visit 06/26/2005 9:15a Main Office Antonia Lynn, 372.30 Conjunctivitis Unspec R.P.A.C. Office Visit 05/29/2005 1:45p Main Office Arjun Abraham, 079.99 Viral Infection M.D. Unspec Office Visit 06/06/2004 3:00p Main Office Jesus V20.2 Routine Or Leatha, Child Health Check M.DLee Ann Office Visit 05/05/2003 3:30p Main Office Jesus V20.2 Routine Infant Or Leatha, Child Health Check M.DLee Ann Plan of Treatment 03/18/2019 - Reina Jackson, C.P.N.P.J02.9 Acute pharyngitis, unspecifiedComments:Rapid strep is negative.Symptomatic care. Gargle with salt water,throat lozenge, fluids and rest. Tylenol or Motrin for fever or pain.Change tooth brush within the next 2-3 days.Monitor and call as needed.Follow up:as needed for new or worsening symptoms
[2019-04-03] MEDS ORDERED: Ibuprofen TAB* 600 MG PO ONE (21:48)
[2019-04-03 21:49] VITALS: BP 118/60
--- NOTE | 2019-04-03 21:54 | UC ---
Hand/Wrist HPI - HPI Summary HPI Summary: 19 yo female tripped and injured her left wrist when she tripped over a laundry basket 30 minutes ago she is right handed - History Of Current Complaint Stated Complaint: WRIST INJURY Time Seen by Provider: 04/03/19 21:39 Hx Obtained From: Patient Hx Last Menstrual Period: Onset/Duration: Sudden Onset Severity Initially: Moderate Severity Currently: Moderate Pain Intensity: 7 Pain Scale Used: 0-10 Numeric Character Of Pain: Aching, Throbbing Aggravating Factor(s): Movement, Lifting Alleviating Factor(s): Rest Associated Signs And Symptoms: Positive: Swelling Related History: Dominant Hand Right Hands: 1 - tender/swollen - Allergies/Home Medications Allergies/Adverse Reactions: Allergies Allergy/AdvReac Type Severity Reaction Status Date / Time No Known Allergies Allergy Verified 04/03/19 21:47 Home Medications: Home Medications NK [No Home Medications Reported] 04/03/19 [History Confirmed 04/03/19] PMH/Surg Hx/FS Hx/Imm Hx Previously Healthy: Yes Other History Of: Negative For: HIV, Hepatitis B, Hepatitis C, Anticoagulant Therapy - Surgical History Surgical History: Yes Surgery Procedure, Year, and Place: tonsillectomy - Family History Known Family History: Positive: Cardiac Disease, Hypertension, Diabetes - Mother and Grandpa, Other - Breast CA - Social History Alcohol Use: Occasionally Substance Use Type: None Smoking Status (MU): Never Smoked Tobacco Household Exposure Type: Cigarettes - Immunization History Most Recent Influenza Vaccination: 2016 Vaccination Up to Date: Yes Review of Systems All Other Systems Reviewed And Are Negative: Yes Constitutional: Positive: Negative Skin: Positive: Negative Eyes: Positive: Negative ENT: Positive: Negative Respiratory: Positive: Negative Cardiovascular: Positive: Negative Gastrointestinal: Positive: Negative Genitourinary: Positive: Negative Musculoskeletal: Positive: Arthralgia - left wrist Neurological: Positive: Negative Psychological: Positive: Negative Physical Exam Triage Information Reviewed: Yes Appearance: Well-Appearing, No Pain Distress, Well-Nourished Vital Signs: Initial Vital Signs Temp 99.5 F 04/03/19 21:47 Pulse 76 04/03/19 21:47 Resp 18 04/03/19 21:47 BP 118/60 04/03/19 21:47 Pulse Ox 97 04/03/19 21:47 Vital Signs Reviewed: Yes Eyes: Positive: Conjunctiva Clear ENT: Positive: Hearing grossly normal. Negative: Nasal congestion, Nasal drainage, Tonsillar swelling, Tonsillar exudate, Trismus, Hoarse voice, Sinus tenderness Neck: Positive: Supple, Nontender, No Lymphadenopathy Respiratory: Positive: Lungs clear, Normal breath sounds, No respiratory distress Cardiovascular: Positive: RRR, No Murmur Musculoskeletal: Positive: Other: - see image/swollen over distal radius/distal n.v.i./skin intact Neurological: Positive: Alert Psychological Exam: Normal Skin Exam: Normal Diagnostics - Radiology No standard instances Radiology Interpretation Completed By: ED Physician Summary of Radiographic Findings: suspect radial styloid fx Hand/Wrist Course/Dx - Course Course Of Treatment: cock up splint applied by RN - Differential Dx/Diagnosis Provider Diagnosis: Nondisplaced fracture of right radial styloid process, initial encounter for closed fracture Discharge - Sign-Out/Discharge Documenting (check all that apply): Patient Departure All imaging exams completed and their final reports reviewed: No - Discharge Plan Condition: Stable Disposition: HOME Patient Education Materials: Wrist Fracture in Adults (ED) Forms: *Work Release Referrals: Levi Prather MD [Medical Doctor] - 1 Day (please let us know if you have trouble making an appt) Additional Instructions: official xr reading pending I suspect a fracture of your radial styloid process splint advil or aleve see orthopedist tomorrow - Billing Disposition and Condition Condition: STABLE Disposition: Home
--- NOTE | 2019-04-04 08:01 | UC ---
- Progress Note Progress Note: Review of final x-ray report. IMPRESSION: NO FRACTURE OF THE WRIST IS NOTED. Consistent with UC provider wet read. No change in POC. Course/Dx - Diagnoses Provider Diagnoses: Nondisplaced fracture of right radial styloid process, initial encounter for closed fracture Discharge - Sign-Out/Discharge Documenting (check all that apply): Post-Discharge Follow Up All imaging exams completed and their final reports reviewed: Yes - Discharge Plan Condition: Stable Disposition: HOME Patient Education Materials: Wrist Fracture in Adults (ED) Forms: *Work Release Referrals: Levi Prather MD [Medical Doctor] - 1 Day (please let us know if you have trouble making an appt) Additional Instructions: official xr reading pending I suspect a fracture of your radial styloid process splint advil or aleve see orthopedist tomorrow - Billing Disposition and Condition Condition: STABLE Disposition: Home
== END 2019-04-03 22:15 | disposition home or self-care (01) ==
LOC: UCEAST 21:37
DX: S52.514A Nondisplaced fracture of right radial styloid process, initial encounter for closed fracture (principal); W01.0XXA Fall on same level from slipping, tripping and stumbling without subsequent striking against object, initial encounter; Y92.019 Unspecified place in single-family (private) house as the place of occurrence of the external cause
CPT/HCPCS: 99212; A9270-GY; G0463